=== PATIENT | male | born 1945 | race Caucasian/White ===

== ENCOUNTER 2017-03-23 23:12 | Emergency (ER) | payer MEDICARE, OTHER ==
[~2017-03-23] VITALS: Ht 185.4 cm; Wt 81.8 kg
[~2017-03-23 23:12] MED LIST: A20IH1 NEB; AMLO-511 PO; ATOR20TA86 PO; AUD NEB; BUDE0.5A NEB; CALC25 PO; COSO10OS OU; DORZ210OS OU; FERR-89 PO; FURO-152 PO; HEPA500015 SQ; INSU100V12 SQ; LEVO500 PO; METO50 PO; PRED10 PO; TACR1 PO; XALA2.5OS OU
[2017-03-23 23:28] LABS: GLUCOSE,POINT OF CARE 171 MG/DL (70-110)
[2017-03-23] MEDS ORDERED: ALPR0.255 PO (23:55)
[2017-03-23] MEDS ORDERED: INSLAN SQ (23:55)
[2017-03-23] MEDS ORDERED: ASPI81TA39 PO (23:55)
[2017-03-23] MEDS ORDERED: PRED5 PO (23:55)
[2017-03-23] MEDS ORDERED: DSS100 PO (23:55)
[2017-03-23] MEDS ORDERED: MINO50CA36 PO (23:55)
[2017-03-23] MEDS ORDERED: ACET-2116 PO (23:55)
[2017-03-23] MEDS ORDERED: ACET650S14 PR (23:55)
[2017-03-23] MEDS ORDERED: TIOT185 IH (23:55)
[2017-03-23] MEDS ORDERED: GLUC1VIA3 IM (23:55)
[2017-03-23] MEDS ORDERED: MS100DRIP SL (23:55)
[2017-03-23] MEDS ORDERED: BISA10S PR (23:55)
[2017-03-23] MEDS ORDERED: MORP15 PO (23:55)
[2017-03-23] MEDS ORDERED: HYOS-28 PO (23:55)
[2017-03-23] MEDS ORDERED: ONDA4TAB10 PO (23:55)
[2017-03-23] MEDS ORDERED: LEVO500 PO (23:55)
[2017-03-23] MEDS ORDERED: HYDR-309 PO (23:55)
[2017-03-23] MEDS ORDERED: INSNOV SQ (23:55)
[2017-03-24] MEDS ORDERED: SODIUM CHLORIDE 0.9% 1,000 ML IV ONE
[2017-03-24 01:09] LABS: BASOPHILS % (AUTO) 0.3 % (0.0-2.0); EOSINOPHILS % (AUTO) 1.1 % (1.0-6.0); HEMOGLOBIN 11.7 g/dL (13.5-17.5); LYMPHOCYTES # (AUTO) 0.7 K/uL (1.0-4.8); LYMPHOCYTES % (AUTO) 8.4 % (22.0-44.0); MEAN CORPUSCULAR HEMOGLOBIN 31.4 pg (26.0-34.0); MEAN CORPUSCULAR HGB CONC 33.4 G/dL (31.0-37.0); MEAN CORPUSCULAR VOLUME 94 fL (80-100); MONOCYTES # (AUTO) 0.9 K/uL (0.1-1.0); NEUTROPHILS # (AUTO) 6.8 K/uL (1.8-7.7); NEUTROPHILS % (AUTO) 79.2 % (40.0-70.0); PLATELET COUNT (AUTO) 216 K/uL (150-450); RED BLOOD CELL COUNT(AUTO) 3.72 MIL/uL (4.50-5.90); RED CELL DISTRIBUTION WIDTH 16.5 % (11.5-14.5); WHITE BLOOD COUNT (AUTO) 8.6 K/uL (4.5-11.0)
[2017-03-24 01:18] LABS: CALCIUM, TOTAL 10.1 mg/dL (8.8-10.5); CREATININE 13.7 mg/dL (0.60-1.30); POTASSIUM 3.6 mmol/L (3.5-5.1)
[2017-03-24 01:23] LABS: ALBUMIN 2.4 g/dL (3.4-5.0); BILIRUBIN,TOTAL 0.6 mg/dL (0.1-1.0); TOTAL PROTEIN, SERUM 6.4 g/dL (6.4-8.2)
[2017-03-24 01:43] VITALS: BP 105/61
== END 2017-03-24 02:32 | disposition home or self-care (01) ==
LOC: EMS 23:14
DX: I12.0 Hypertensive chronic kidney disease with stage 5 chronic kidney disease or end stage renal disease (principal); E11.22 Type 2 diabetes mellitus with diabetic chronic kidney disease; N18.6 End stage renal disease; E78.00 Pure hypercholesterolemia, unspecified; I48.91 Unspecified atrial fibrillation; Z99.2 Dependence on renal dialysis; Z79.4 Long term (current) use of insulin; Z88.8 Allergy status to other drugs, medicaments and biological substances
CPT/HCPCS: 36415; 71010; 80053; 82962; 83690; 84484; 85025; 93005; 93041; 96360; 96361; 99285; J7030